=== PATIENT | male | born 1995 | race Caucasian/White ===

== ENCOUNTER 2023-07-17 21:02 | Emergency (ER) | payer OTHER, SELFPAY ==
[2023-07-17 21:05] VITALS: PULSE 97; RESP 20; TEMP 36.1; O2SAT 94; BMI 16.1
[2023-07-17] MEDS: LIDOCAINE 2% JELLY 10 ML UR (21:15)
--- NOTE | 2023-07-17 21:23 | CT_ITS ---
The [address] [address] Patient Name: REJI BLAKELY MRN: [id number] date: 1995 Sex: M Assigned Patient Location: ER Current Patient Location: ER Accession/Order Number: [id number] Exam Date: 07/17/2023 21:39 Report Date: 07/17/2023 22:19 At the request of: GEORGES BLAIR Procedure: CT abdomen pelvis wo con EXAMINATION: CT Abdomen/Pelvis REPORT DATE: 07/17/2023 10:15 PM EDT INDICATION: Urinary retention COMPARISON(S): None. TECHNIQUE: Unenhanced axial CT through the abdomen and pelvis was performed. Coronal and sagittal reformats were provided. Individualized dose optimization techniques were used for this CT. FINDINGS: SUPPORT DEVICES: None. LOWER CHEST Normal. ABDOMEN/PELVIS Liver: Normal. Gallbladder/biliary: Normal gallbladder. No biliary ductal dilation. Pancreas: Normal. Spleen: Normal. Adrenal glands: Normal. Kidneys and ureters: Normal. Bladder: Jorge catheter in place limiting evaluation. Air seen within the urinary bladder likely sequelae of instrumentation. Reproductive organs: Normal for age. Vessels: Normal. Stomach/bowel: Normal appearance of the gastroesophageal junction. Small bowel is normal caliber. Moderate to large colonic stool burden. The transverse colon is air-filled and measures 6.5 cm in diameter, mildly dilated. Lymph nodes: No lymphadenopathy. Peritoneum: No intraperitoneal free air. No intraperitoneal free fluid. MUSCULOSKELETAL: Abdominal wall: No hernia or soft tissue mass. Bones: No acute osseous abnormality. Grade 1/2 anterolisthesis at L5-S1 with bilateral pars defects at this level. CT/CT abdomen pelvis wo con IMPRESSION: No acute abdominal/pelvic abnormality. Moderate to large colonic stool burden with air-filled distended transverse colon. Electronically authenticated by: MARKUS GRADY Date: 07/17/2023 22:19
--- NOTE | 2023-07-17 21:24 | ED.MALEGU1 ---
HPI - Male Genitourinary General Chief complaint: Urogenital-Male Stated complaint: URINARY RETENTION Time Seen by Provider: 07/17/23 21:16 Source: patient Mode of arrival: walk-in Limitations: no limitations History of Present Illness HPI Narrative: history of IVDA. injects methamphetamine. States he has not used in 4 days. Is currently residing at [facility]. States he has not been able to urinate today. No nausea or vomiting. No fever. no testicle pain. States he did have a catheter in place when he was 15. States he had overdosed and when he woke up there was a catheter in place. Patient also complains of back pain. States a couple of days ago he bent over and experienced acute pain of his lower back. States he was seen at another hospital. Presents here with main complaint of not being able to urinate. Related Data Allergies Allergy/AdvReac Type Severity Reaction Status Date / Time No Known Drug Allergies Allergy Verified 07/17/23 21:12 Review of Systems ROS Status of ROS 10 or more systems reviewed and unremarkable except as noted in history and below Exam Constitutional Vital Signs, click to edit/add: Last Vital Signs Temp 97.0 F L 07/17/23 21:05 Pulse 97 H 07/17/23 21:05 Resp 20 07/17/23 21:05 Pulse Ox 94 L 07/17/23 21:05 O2 Del Method Room Air 07/17/23 21:05 Common normals: no apparent distress (mild distress), average body habitus, oriented x3, no limitations, healthy appearing and alert Eye Common normals: EOMs intact bilaterally, conjunctivae normal and no scleral icterus Respiratory Common normals: normal respiratory effort, no retractions and no use of accessory muscles Cardio Common normals: S1 normal heart sound and S2 normal heart sound Rate: tachycardic GI Other: suprapubic tenderness Extremity Common normals: normal to inspection and full ROM Neuro Common normals: oriented x3, CN's II-XII intact bilaterally, moves all extremities, no focal motor deficits and no sensory deficits noted Psych Appearance: grossly normal Course Vital Signs Vital signs: Vital Signs Temperature 97.0 F L 07/17/23 21:05 Pulse Rate 97 H 07/17/23 21:05 Respiratory Rate 20 07/17/23 21:05 Pulse Oximetry 94 L 07/17/23 21:05 Oxygen Delivery Method Room Air 07/17/23 21:05 Temperature 97.0 F L 07/17/23 21:05 Pulse Rate 97 H 07/17/23 21:05 Respiratory Rate 20 07/17/23 21:05 Pulse Oximetry 94 L 07/17/23 21:05 Oxygen Delivery Method Room Air 07/17/23 21:05 MDM - Male Genitourinary MDM Narrative Medical decision making narrative: presents with complaint of urinary retention. States he was seen a couple of days ago for back pain. His vertebral spine is nontender. His urine drug screen is positive for polysubstance abuse. No fever. bladder scan did demonstrate over 800cc of urine. mishra was placed. workup in the department also included CT of his abdomen and L-spine. No osseous abnormalities. No fever. Patient discharged with mishra in place to follow up with urology. it may be that his polysubstance abuse is reason for retention. Discharged home in improved condition Lab Data Labs: Lab Results 07/17/23 Range/Units 21:20 Urine Color Lt. yellow (YELLOW) Urine Clarity Clear (CLEAR) Urine pH 8.0 (5.0-9.0) Ur Specific [place] 1.010 (1.005-1.025) Urine Protein Negative (NEG/TRACE) mg/dL Urine Glucose (UA) Negative (NEGATIVE) mg/dL Urine Ketones Negative (NEGATIVE) mg/dL Urine Occult Blood Negative (NEGATIVE) Urine Nitrite Negative (NEGATIVE) Urine Bilirubin Negative (NEGATIVE) Urine Urobilinogen 0.2 (0.2-1.0) EU/dL Ur Leukocyte Esterase Negative (NEGATIVE) Urine Opiates Screen Negative (NEGATIVE) Ur Buprenorphine Scrn Positive A (NEGATIVE) Ur Oxycodone Screen Negative (NEGATIVE) Urine Methadone Screen Negative (NEGATIVE) Ur Propoxyphene Screen Negative (NEGATIVE) Ur Barbiturates Screen Negative (NEGATIVE) U Tricyclic Antidepress Negative (NEGATIVE) Ur Phencyclidine Scrn Negative (NEGATIVE) Ur Amphetamines Screen Positive A (NEGATIVE) U Methamphetamines Scrn Positive A (NEGATIVE) U Benzodiazepines Scrn Positive A (NEGATIVE) Urine Cocaine Screen Negative (NEGATIVE) U Cannabinoids Screen Positive A (NEGATIVE) Imaging Data Abdominal x-ray: Attestation: I have reviewed the pertinent imaging results. Radiologist's impression: GEORGES BLAIR Procedure: CT lumbar spine wo con EXAMINATION: CT lumbar spine wo con HISTORY: IVDA. lower back pain and urinary retention - TECHNIQUE: CT lumbar spine without contrast. All CT scans at this facility use dose modulation, iterative reconstruction, and/or weight based dosing when appropriate to reduce radiation dose to as low as reasonably achievable. COMPARISON: CT abdomen pelvis 07/17/2023 RESULT: Vertebral body heights are preserved. There is grade 1/2 anterolisthesis at L5-S1 with bilateral pars defects at this level. No significant spinal canal narrowing however, there is moderate bilateral foraminal narrowing at this level. Small disc bulge at L4-L5 also noted resulting in mild bilateral foraminal narrowing without significant spinal canal narrowing. Otherwise no significant degenerative disc disease. No acute fracture or aggressive osseous abnormality. Sacroiliac joints are intact. Mishra catheter in place. Large volume colonic stool burden noted. IMPRESSION: Grade 1/2 anterolisthesis of L5-S1 with bilateral pars defects. Disc and coverage resulting in moderate bilateral foraminal narrowing. No significant spinal canal narrowing throughout the lumbar spine. No acute osseous abnormality of the lumbar spine. Electronically authenticated by: MARKUS GRADY Date: 07/17/2023 23:57 Discharge Plan Discharge Chief Complaint: Urogenital-Male Clinical Impression: Acute urinary retention Patient Disposition: Home, Self-Care Instructions: Urinary Retention in Men (ED) Additional Instructions: Follow up with Urology early next week Stand Alone Forms: Portal Instructions Referrals: Physician,Non-Staff, MD [Primary Care Provider] - 1 week
--- NOTE | 2023-07-17 21:35 | PC.NURSE ---
Pt presents through EMS entrance via private car from [facility] Pt directed to ER registration entrance, pt yelling out what if I , then what Security contacted The person who dropped him off handed his [employer] paperwork to the ER secretary of police and says to call at pickup Pt brought back to a room Pt uncompliant with directions, rocking in the bed holding his penis Pt states he has not been able to urinate much today and it hurts, pt spewing words containing concern for a catheter placement Yanique CINTRON brings in the bladder scanner while this nurse attempts to obtain vitals Bladder scanner reveled >800mL Pt verbally irritated, cursing, and yelling Yanique CINTRON gets supplies for mishra cath placement, this nurse applies lidocaine to the penis via urojet Yanique CINTRON inserts catheter, pt yelling out and grabbing trying to pull tube back out This nurse provided emotional support to pt, calming him through the procedure 1100ml immediately produced through mishra Urine sample obtained and sent to lab Pt states he has been clean for 3-4 days from meth amphetmine, denies medications or allergies Dr. smart presents to bedside, pt states he does not consent to mishra removal Pt more willing to cooperate at this time
[2023-07-17 21:53] LABS: Bilirubin Urine NEGATIVE (NEGATIVE); Blood Urine NEGATIVE (NEGATIVE); Clarity Urine CLEAR (CLEAR); Color Urine LT. YELLOW (YELLOW); Glucose Urine UA NEGATIVE (NEGATIVE); Ketones Urine NEGATIVE (NEGATIVE); Leukocyte Esterase Urine NEGATIVE (NEGATIVE); Nitrite Urine NEGATIVE (NEGATIVE); Protein Urine NEGATIVE (NEG/TRACE); Urobilinogen Urine 0.2 EU/dL (0.2-1.0)
[2023-07-17 22:01] LABS: Urine Microscopic Indicated NO
[2023-07-17 22:07] LABS: Cannabinoid Screen Urine POSITIVE (NEGATIVE); Cocaine Screen Urine NEGATIVE (NEGATIVE); Methamphetamines Screen Urine POSITIVE (NEGATIVE); Phencyclidine Screen Urine NEGATIVE (NEGATIVE)
--- NOTE | 2023-07-17 22:07 | PC.NURSE ---
Roland villafana, called over for help during CT This nurse assisted him to move the pt onto the Ct bed, Pt in tears with any movement Pt requesting pain medication
[2023-07-17 22:08] LABS: Amphetamine Screen Urine POSITIVE (NEGATIVE); Barbiturates Screen Urine NEGATIVE (NEGATIVE); Benzodiazepines Screen Urine POSITIVE (NEGATIVE); Buprenorphine Screen Urine POSITIVE (NEGATIVE); Methadone Screen Urine NEGATIVE (NEGATIVE); Opiate Screen Urine NEGATIVE (NEGATIVE); Oxycodone Screen Urine NEGATIVE (NEGATIVE); Tricyclic Antidepressant Urine NEGATIVE (NEGATIVE)
--- NOTE | 2023-07-17 22:58 | CT_ITS ---
The [address] [address] Patient Name: REJI BLAKELY MRN: [id number] date: 1995 Sex: M Assigned Patient Location: ER Current Patient Location: ER Accession/Order Number: [id number] Exam Date: 07/17/2023 23:05 Report Date: 07/17/2023 23:57 At the request of: GEORGES BLAIR Procedure: CT lumbar spine wo con EXAMINATION: CT lumbar spine wo con HISTORY: IVDA. lower back pain and urinary retention - TECHNIQUE: CT lumbar spine without contrast. All CT scans at this facility use dose modulation, iterative reconstruction, and/or weight based dosing when appropriate to reduce radiation dose to as low as reasonably achievable. COMPARISON: CT abdomen pelvis 07/17/2023 RESULT: Vertebral body heights are preserved. There is grade 1/2 anterolisthesis at L5-S1 with bilateral pars defects at this level. No significant spinal canal narrowing however, there is moderate bilateral foraminal narrowing at this level. Small disc bulge at L4-L5 also noted resulting in mild bilateral foraminal narrowing without significant spinal canal narrowing. Otherwise no significant degenerative disc disease. No acute fracture or aggressive osseous abnormality. Sacroiliac joints are intact. Jorge catheter in place. Large volume colonic stool burden noted. CT/CT lumbar spine wo con IMPRESSION: Grade 1/2 anterolisthesis of L5-S1 with bilateral pars defects. Disc and coverage resulting in moderate bilateral foraminal narrowing. No significant spinal canal narrowing throughout the lumbar spine. No acute osseous abnormality of the lumbar spine. Electronically authenticated by: MARKUS GRADY Date: 07/17/2023 23:57
--- NOTE | 2023-07-17 23:04 | PC.NURSE ---
Pt aware that he will be getting another CT Pt refused Toradol for Yanique RN, Dr. Acevedo aware Pt states he is feeling alittle bit better as of now but feels like the catheter is in the wrong place
== END 2023-07-18 02:55 | disposition home or self-care (01) ==
PROVIDERS: Emergency Provider Internal Medicine
DX: R33.9 Retention of urine, unspecified (principal); F19.10 Other psychoactive substance abuse, uncomplicated
CPT/HCPCS: 51702; 72131; 74176; 80307; 81003; 99285

== ENCOUNTER 2023-07-21 14:01 | Emergency (ER) | payer OTHER, SELFPAY ==
[2023-07-21 14:06] VITALS: BP 136/88; PULSE 71; RESP 16; TEMP 36.6; O2SAT 100; BMI 19.8
--- NOTE | 2023-07-21 14:13 | ED.OVERDOSE1 ---
HPI - Overdose General Chief Complaint: Weakness Stated Complaint: SUBSTANCE ABUSE Time Seen by Provider: 07/21/23 14:04 Source: patient Mode of arrival: Wheelchair History of Present Illness HPI Narrative: patient is a 28-year-old male who returns to this emergency department with concern for withdrawal symptoms. Patient was sent over from the drug rehab facility where he is currently staying. Per report from the facility, patient apparently signed himself out against medical advice several days ago and has been using methamphetamines and fentanyl as well as Suboxone and they're concerned that he has precipitated withdrawal. He reports nausea and vomiting and generally not feeling well but no other focal medical complaints. He has not had any fevers, shortness of breath. He was apparently given Zofran at the rehab facility and he arrives with a bottle of Gatorade. Facility at [facility] requests medical evaluation and IV fluids. he denies ingestion of any alcohol today. he was seen in this emergency department last week for urinary retention with a Jorge catheter placed, he states he has had no issues with his urination since that time. he apparently also has a history of hepatitis C that is untreated. Related Data Home Medications Medication Instructions Recorded Confirmed albuterol sulfate 90 mcg/actuation 2 puff inhalation Q4H PRN 07/21/23 07/21/23 aerosol inhaler shortness of breath or wheezing buprenorphine 8 mg-naloxone 2 mg 1 film sublingual BID 07/21/23 07/21/23 sublingual film carbamazepine 200 mg tablet 200 mg PO BID 07/21/23 07/21/23 cyclobenzaprine 10 mg tablet 10 mg PO Q8H PRN muscle spasm 07/21/23 07/21/23 mirtazapine 15 mg tablet 15 mg PO QPM 07/21/23 07/21/23 Allergies Allergy/AdvReac Type Severity Reaction Status Date / Time No Known Drug Allergies Allergy Verified 07/17/23 21:12 Review of Systems ROS Constitutional Reports: chills; Denies: fever Cardiovascular Denies: chest pain Respiratory Denies: shortness of breath Gastrointestinal Reports: nausea and vomiting; Denies: diarrhea Musculoskeletal Denies: back pain Integumentary/Breast Denies: rash Neurological Reports: headache Allergic/Immunologic Denies: hives Exam Narrative Exam Narrative: Gen.: Awake, alert, in no distress Head: Normocephalic, atraumatic ENT: Moist mucous membranes Respiratory: No respiratory distress, lungs clear bilaterally Cardio: Regular rate and rhythm Gastrointestinal: Abdomen is soft, nondistended and nontender to palpation Extremities: Moves extremities equally Psych: Normal mood and affect Neuro: No focal neuro deficit Skin: Warm, dry, intact Constitutional Vital Signs, click to edit/add: Last Vital Signs Temp 97.8 F 07/21/23 14:06 Pulse 71 07/21/23 14:06 Resp 16 07/21/23 14:06 BP 136/88 07/21/23 14:06 Pulse Ox 100 07/21/23 14:06 Course Vital Signs Vital signs: Vital Signs Temperature 97.8 F 07/21/23 14:06 Pulse Rate 71 07/21/23 14:06 Respiratory Rate 16 07/21/23 14:06 Blood Pressure 136/88 07/21/23 14:06 Pulse Oximetry 100 07/21/23 14:06 Temperature 97.8 F 07/21/23 14:06 Pulse Rate 71 07/21/23 14:06 Respiratory Rate 16 07/21/23 14:06 Blood Pressure 136/88 07/21/23 14:06 Pulse Oximetry 100 07/21/23 14:06 MDM - Overdose MDM Narrative Medical decision making narrative: IV was established, blood drawn from the IV was found to be hemolyzed. When chief petroleum engineer approached the patient about a redraw of his blood work, he refused additional lab sticks and is refusing to have his labs drawn at this time. He has stable vital signs in the emergency department. Abdomen is soft and benign. He was given Zofran, Pepcid in the Emergency Room. He is reevaluated by attending physician prior to discharge, stable and discharged back to his rehab facility. Return to the Emergency Room if symptoms change or worsen. Medical Records Attestation: I reviewed the patient's medical records. Discharge Plan Discharge Chief Complaint: Weakness Clinical Impression: Withdrawal from opioids, Nausea and vomiting, Opioid abuse Patient Disposition: Home, Self-Care Time of Disposition Decision: 15:11 Condition: Good Prescriptions / Home Meds: No Action albuterol sulfate 90 mcg/actuation HFA aerosol inhaler 2 puff INHALATION Q4H PRN (Reason: shortness of breath or wheezing) buprenorphine-naloxone 8-2 mg film 1 film sublingual BID carbamazepine 200 mg tablet 200 mg PO BID cyclobenzaprine 10 mg tablet 10 mg PO Q8H PRN (Reason: muscle spasm) mirtazapine 15 mg tablet 15 mg PO QPM Instructions: Acute Nausea and Vomiting (DC), Polysubstance Use Disorder (ED), Opioid Withdrawal (ED) Stand Alone Forms: Portal Instructions Referrals: Physician,Non-Staff, MD [Primary Care Provider] - 1 week
[2023-07-21] MEDS: 0.9 % SODIUM CHLORIDE 1,000 ML 1000 ML IV (14:23)
[2023-07-21] MEDS: ONDANSETRON PF 4 MG/2 ML VIAL IV (14:24)
[2023-07-21] MEDS: FAMOTIDINE/PF 20 MG/2 ML VIAL IV (14:24)
== END 2023-07-21 15:20 | disposition home or self-care (01) ==
PROVIDERS: Emergency Provider Emergency Medicine
DX: F11.13 Opioid abuse with withdrawal (principal); R11.2 Nausea with vomiting, unspecified; B19.20 Unspecified viral hepatitis C without hepatic coma
CPT/HCPCS: 36415; 80053; 96374; 96375; 99284